=== PATIENT | male | born 1990 | race African-American/Black ===

== ENCOUNTER 2021-06-25 23:33 | Emergency (ER) | payer OTHER ==
[2021-06-26 00:10] LABS: Absolute Lymphocytes (CBC) 1.9 K/uL (0.7-4.9); Hematocrit 40.8 % (39.6-49.0); Lymphocytes % 33.7 % (15.3-44.8); MPV 7.4 fL (7.6-11.3); RBC Red Blood Cell Count 4.71 M/uL (4.33-5.43)
[2021-06-26 00:15] LABS: Protime INR 1.21
[2021-06-26 00:43] LABS: ALT/SGPT 44 U/L (12-78); AST/SGOT 25 U/L (15-37); Albumin 3.6 g/dL (3.4-5.0); Alkaline Phosphatase 92 U/L (45-117); BUN Blood Urea Nitrogen 12 mg/dL (7-18); Bicarbonate 26 mmol/L (21-32); Bilirubin Direct 0.1 mg/dL (0-0.2); Bilirubin Total 0.6 mg/dL (0.2-1.0); Glucose Level 89 mg/dL (74-106); Magnesium 2.3 mg/dL (1.8-2.4); NT PRO-BNP 7 pg/mL (<125); Potassium 3.8 mmol/L (3.5-5.1); Protein, Total 8.3 g/dL (6.4-8.2); Sodium Level 140 mmol/L (136-145)
[2021-06-26 00:53] LABS: SARS-COV-2 RT PCR NEGATIVE (NEGATIVE)
--- NOTE | 2021-06-26 03:53 | ER ---
Nurse's Notes [facility] Name: Jessica Isaacs Age: 30 yrs Sex: Male : 1990 Arrival Date: 06/25/2021 Time: 23:36 Bed 5 Private MD: Diagnosis: Chest pain, unspecified Presentation: 06/25 23:42 Chief complaint: EMS states: chest pain with a cough for 3 days. Coronavirus screen: 5 Vaccine status: Patient reports being unvaccinated. Ebola Screen: No symptoms or risks identified at this time. Initial Sepsis Screen: Does the patient meet any 2 criteria? No. Patient's initial sepsis screen is negative. Does the patient have a suspected source of infection? No. Patient's initial sepsis screen is negative. Risk Assessment: Do you want to hurt yourself or someone else? Patient reports no desire to harm self or others. Onset of symptoms was June 22, 2021. 23:42 Method Of Arrival: EMS [facility] 23:42 Acuity: BERRY 3 5 Triage Assessment: 23:44 General: Appears in no apparent distress. Behavior is cooperative, appropriate for age. sm5 Pain: Complains of pain in chest. Neuro: No deficits noted. Level of Consciousness is awake, alert, Oriented to person, place, time, situation. Cardiovascular: Reports chest pain, Denies Capillary refill < 3 seconds Patient's skin is warm and dry. Respiratory: No deficits noted. Airway is patent Trachea midline Respiratory effort is even, unlabored. GI: No deficits noted. Historical: - Allergies: 23:43 No Known Allergies; sm5 - PMHx: 23:43 Hypertensive disorder; sm5 - PSHx: 23:43 heart surgery for enlarged heart; sm5 - Immunization history:: Client reports having NOT received the Covid vaccine. Flu vaccine is not up to date. - Social history:: Smoking status: Patient denies any tobacco usage or history of. Patient/guardian denies using street drugs. Screenin:45 Abuse screen: Denies threats or abuse. Denies injuries from another. Nutritional sm5 screening: No deficits noted. Tuberculosis screening: No symptoms or risk factors identified. Fall Risk None identified. Assessment: 23:46 Pain: Pain does not radiate. Pain began 2-3 days ago. 5 06/26 00:43 Reassessment: see triage assessment. 5 01:57 Reassessment: No changes from previously documented assessment. sm5 02:34 Reassessment: No changes from previously documented assessment. sm5 03:27 Reassessment: No changes from previously documented assessment. 5 Vital Signs: 06/25 23:42 BP 145 / 92; Pulse 65; Resp 18; Temp 98.2(O); Pulse Ox 100% on R/A; Weight 77.11 kg; 5 Height 5 ft. 9 in. (175.26 cm); Pain 6/10; 06/26 00:48 BP 132 / 94; Pulse 61; Resp 17; Pulse Ox 100% on R/A; sm5 02:10 BP 134 / 99; Pulse 57; Resp 20; Pulse Ox 100% on R/A; sm5 03:27 BP 122 / 60; Pulse 68; Resp 20; Pulse Ox 99% on R/A; 5 06/25 23:42 Body Mass Index 25.10 (77.11 kg, 175.26 cm) 5 [place] Coma Score: 00:48 Eye Response: spontaneous(4). Verbal Response: oriented(5). Motor Response: obeys [facility] commands(6). Total: 15. ED Course: 06/25 23:36 Patient arrived in ED. [facility] 23:37 Zach Mayfield MD is Attending Physician. [facility] 23:42 Susie Rodríguez, AIMEE is Primary Nurse. 5 23:43 Triage completed. 5 23:45 Arm band placed on right wrist. sm5 23:45 Patient has correct armband on for positive identification. Bed in low position. Call [facility] light in reach. Side rails up X2. surveillance system monitor on. Pulse ox on. NIBP on. 06/26 00:01 No provider procedures requiring assistance completed. Inserted saline lock: 20 gauge sm5 in right hand, using aseptic technique. Blood collected. Patient maintains SpO2 saturation greater than 95% on room air. 00:14 COVID-19/FLU A+B (Document "Date of Onset" if Symptomatic) Sent. sm5 00:14 Basic Metabolic Panel Sent. sm5 00:14 LFT's Sent. sm5 00:14 Magnesium Sent. sm5 00:14 NT PRO-BNP Sent. 5 00:14 PT-INR Sent. 5 00:14 Troponin HS Sent. sm5 00:24 XRAY Chest (1 view) In Process Unspecified. EDMS 04:18 IV discontinued, intact, bleeding controlled, No redness/swelling at site. Pressure 5 dressing applied. Administered Medications: No medications were administered Outcome: 03:53 Discharge ordered by MD. wang 04:18 Discharged to [employer] 5 04:18 Condition: stable 04:18 Discharge instructions given to patient, Instructed on discharge instructions, Demonstrated understanding of instructions. 04:18 Patient left the ED. 5 Signatures: Dispatcher [employer] EDZach Freitas MD MD [facility] Paula Hauser Sarah, RN RN 5
--- NOTE | 2021-06-26 03:53 | EDPHYS ---
Physician Documentation [facility] Name: Jessica Isaacs Age: 30 yrs Sex: Male : 1990 Arrival Date: 06/25/2021 Time: 23:36 Bed 5 Private MD: ED Physician Zach Mayfield HPI: 06/25 23:46 This 30 yrs old Black Male presents to ER via EMS with complaints of Chest Pain. mh7 23:46 The patient or guardian reports chest pain that is located primarily in the anterior mh7 chest wall, left. The pain does not radiate. Associated signs and symptoms: Pertinent positives: cough, Pertinent negatives: abdominal pain, diaphoresis, dizziness, headache, lower extremity pain, lower extremity swelling, lightheadedness, nausea, near syncope, palpitations, recent travel, shortness of breath, syncope, vomiting. The chest pain is described as sharp. Duration: The patient or guardian reports multiple episodes, that are intermittent, that wax and wane, with no pattern. Modifying factors: The symptoms are alleviated by nothing. the symptoms are aggravated by cough. Severity of pain: At its worst the pain was moderate 2 day(s) ago, in the emergency department the pain has improved moderately. Historical: - Allergies: 23:43 No Known Allergies; sm5 - PMHx: 23:43 Hypertensive disorder; sm5 - PSHx: 23:43 heart surgery for enlarged heart; sm5 - Immunization history:: Client reports having NOT received the Covid vaccine. Flu vaccine is not up to date. - Social history:: Smoking status: Patient denies any tobacco usage or history of. Patient/guardian denies using street drugs. ROS: 23:46 Constitutional: Negative for fever, chills, and weight loss, Eyes: Negative for injury, mh7 pain, redness, and discharge, ENT: Negative for injury, pain, and discharge, Neck: Negative for injury, pain, and swelling, Abdomen/GI: Negative for abdominal pain, nausea, vomiting, diarrhea, and constipation, Back: Negative for injury and pain, : Negative for injury, bleeding, discharge, and swelling, MS/Extremity: Negative for injury and deformity, Skin: Negative for injury, rash, and discoloration, Neuro: Negative for headache, weakness, numbness, tingling, and seizure, Psych: Negative for depression, anxiety, suicide ideation, homicidal ideation, and hallucinations, Allergy/Immunology: Negative for hives, rash, and allergies, Endocrine: Negative for neck swelling, polydipsia, polyuria, polyphagia, and marked weight changes, Hematologic/Lymphatic: Negative for swollen nodes, abnormal bleeding, and unusual bruising. Exam: 23:46 Constitutional: This is a well developed, well nourished patient who is awake, alert, mh7 and in no acute distress. Head/Face: Normocephalic, atraumatic. Eyes: Pupils equal round and reactive to light, extra-ocular motions intact. Lids and lashes normal. Conjunctiva and sclera are non-icteric and not injected. Cornea within normal limits. Periorbital areas with no swelling, redness, or edema. Neck: Trachea midline, no thyromegaly or masses palpated, and no cervical lymphadenopathy. Supple, full range of motion without nuchal rigidity, or vertebral point tenderness. No Meningismus. Cardiovascular: Regular rate and rhythm with a normal S1 and S2. No gallops, murmurs, or rubs. Normal PMI, no JVD. No pulse deficits. Respiratory: Lungs have equal breath sounds bilaterally, clear to auscultation and percussion. No rales, rhonchi or wheezes noted. No increased work of breathing, no retractions or nasal flaring. Abdomen/GI: Soft, non-tender, with normal bowel sounds. No distension or tympany. No guarding or rebound. No evidence of tenderness throughout. Back: No spinal tenderness. No costovertebral tenderness. Full range of motion. Skin: Warm, dry with normal turgor. Normal color with no rashes, no lesions, and no evidence of cellulitis. MS/ Extremity: Pulses equal, no cyanosis. Neurovascular intact. Full, normal range of motion. Neuro: Awake and alert, GCS 15, oriented to person, place, time, and situation. Cranial nerves II-XII grossly intact. Motor strength 5/5 in all extremities. Sensory grossly intact. Cerebellar exam normal. Normal gait. Psych: Awake, alert, with orientation to person, place and time. Behavior, mood, and affect are within normal limits. 23:46 Chest/axilla: Inspection: normal, Palpation: tenderness, that is moderate, of the left mh7 breast, that totally reproduces the patient's complaints, Axilla: are normal, Lymph nodes: lymphadenopathy is not appreciated. Vital Signs: 23:42 BP 145 / 92; Pulse 65; Resp 18; Temp 98.2(O); Pulse Ox 100% on R/A; Weight 77.11 kg; sm5 Height 5 ft. 9 in. (175.26 cm); Pain 6/10; 06/26 00:48 BP 132 / 94; Pulse 61; Resp 17; Pulse Ox 100% on R/A; sm5 02:10 BP 134 / 99; Pulse 57; Resp 20; Pulse Ox 100% on R/A; sm5 03:27 BP 122 / 60; Pulse 68; Resp 20; Pulse Ox 99% on R/A; sm5 06/25 23:42 Body Mass Index 25.10 (77.11 kg, 175.26 cm) 5 [place] Coma Score: 00:48 Eye Response: spontaneous(4). Verbal Response: oriented(5). Motor Response: obeys 5 commands(6). Total: 15. MDM: 03:51 Differential diagnosis: acute myocardial infarction, acute pericarditis, anxiety, mh7 coronary artery disease chest wall pain, costochondritis, myocarditis, pericarditis, pneumonia, pneumothorax, pulmonary embolus. HEART Score: History: Slightly Suspicious (0), ECG: Non specific repolarization disturbance / LBTB / PM (1), Age: < or = 45 years (0), Risk Factors: 1 or 2 risk factors (1), [Hypertension] Troponin: < or = 1 x Normal Limit (0), Total Score = 2. Data reviewed: vital signs, nurses notes, EMS record, lab test result(s), cardiac enzymes, CBC, electrolytes, EKG, radiologic studies, plain films. Data interpreted: Pulse oximetry: on room air is 100 %. Interpretation: normal. Counseling: I had a detailed discussion with the patient and/or guardian regarding: the historical points, exam findings, and any diagnostic results supporting the discharge/admit diagnosis, the presence of at least one elevated blood pressure reading (>120/80) during this emergency department visit, lab results, radiology results, the need for outpatient follow up, to return to the emergency department if symptoms worsen or persist or if there are any questions or concerns that arise at home. Response to treatment: the patient's symptoms have resolved after treatment, the patient's blood pressure is in an acceptable range, mental status has returned to baseline, the patient no longer shows bradycardia, the patient is not short of breath, the patient is not tachycardic, the patient's pain is gone, the patient's temperature has normalized. 03:53 Patient medically screened. [facility] 06/25 23:44 Order name: Basic Metabolic Panel; Complete Time: 00:[address] [facility] 06/25 23:44 Order name: CBC with Diff; Complete Time: 00:[address] [facility] 06/25 23:44 Order name: LFT's; Complete Time: 00:[address] [facility] 06/25 23:44 Order name: Magnesium; Complete Time: 00:[address] [facility] 06/25 23:44 Order name: NT PRO-BNP; Complete Time: 00:[address] [facility] 06/25 23:44 Order name: PT-INR; Complete Time: 00:[address] [facility] 06/25 23:44 Order name: Troponin HS; Complete Time: 00:[address] [facility] 06/25 23:44 Order name: XRAY Chest (1 view) [facility] 06/25 23:44 Order name: EKG; Complete Time: 23:[address] [facility] 06/25 23:44 Order name: Cardiac monitoring; Complete Time: 00:[address] [facility] 06/25 23:44 Order name: EKG - Nurse/Tech; Complete Time: 00:27 06/25 23:44 Order name: COVID-19/FLU A+B (Document "Date of Onset" if Symptomatic); Complete Time: [facility] 06/26 00:51 Order name: D-Dimer; Complete Time: 01:[address] [facility] 06/25 23:44 Order name: IV Saline Lock; Complete Time: 00:[address] [facility] 06/25 23:44 Order name: Labs collected and sent; Complete Time: 00:[address] [facility] 06/25 23:44 Order name: O2 Per Protocol; Complete Time: 00:[address] [facility] 06/25 23:44 Order name: O2 Sat Monitoring; Complete Time: 00:[address] [facility] Administered Medications: No medications were administered Disposition Summary: 06/26/21 03:53 Discharge Ordered Location: Home [facility] Problem: new [facility] Symptoms: have improved [facility] Condition: Stable [facility] Diagnosis - Chest pain, unspecified [facility] Followup: [facility] - With: Private Physician - When: 1 - 2 days - Reason: Worsening of condition, Recheck today's complaints, Continuance of care, Re-evaluation by your physician Discharge Instructions: - Discharge Summary Sheet [facility] - Chest Wall Pain, [id number] [facility] - Nonspecific Chest Pain, Adult, [id number] [facility] Forms: - Medication Reconciliation Form [facility] - Thank You Letter [facility] - Antibiotic Education [facility] - Prescription Opioid Use [facility] Signatures: Dispatcher [employer] Zach Swann MD MD [facility] Susie Rodríguez RN RN sm5
[2021-06-26 04:23] VITALS: TEMP 98.2
[2021-06-26 04:27] VITALS: BP 122/60; O2SAT 99
--- NOTE | 2021-06-26 20:11 | RAD REPORT ---
EXAM DESCRIPTION: [facility] Single View06/26/2021 12:23 am CLINICAL HISTORY: 30 years Male, Chest pain;Cough COMPARISON: None. FINDINGS: No consolidation. No pneumothorax. No significant pleural effusion. Cardiac silhouette appears at the upper limits of normal. Mediastinal surgical clip demonstrated. Osseous structures are unremarkable. IMPRESSION: No acute findings. Electronically signed by: David Rodriguez MD 06/26/2021 3:15 AM REMOTE SENSING PROGRAM MANAGER Due to temporary technical issues with the PACS/Fluency reporting system, reports are being signed by the in house radiologists without review as a courtesy to insure prompt reporting. The interpreting radiologist is fully responsible for the content of the report.
== END 2021-06-26 04:18 | disposition home or self-care (01) ==
LOC: ER 23:33
DX: R07.9 Chest pain, unspecified (principal); I10 Essential (primary) hypertension; Z20.822 Contact with and (suspected) exposure to COVID-19
CPT/HCPCS: 93005 ×2; 85025; 80048; 36415; 83735; 85610; 85379; 80076; 84484; 83880; 0240U; 71045; 99285